=== PATIENT | male | born 1980 | race Caucasian/White ===

== ENCOUNTER 2019-05-22 18:03 | Emergency (ER) | payer MEDICAID ==
[~2019-05-22] VITALS: Ht 167.6 cm; Wt 81.6 kg
[2019-05-22 18:06] VITALS: BP_SYST 135
--- NOTE | 2019-05-22 18:08 | NUR ---
Patient to ER chair for evaluation. Side rails up. Will assume care of patient
--- NOTE | 2019-05-22 18:09 | NUR ---
Patient brought in by law enforcement for medical clearance. Law enforcement reports that patient was taken down at a store by security. Patient has an abrasion to left elbow. Denies any KO. Patient denies any pain and voices no complaints. No other injuries per patient or as noted. Will continue to monitor.
--- NOTE | 2019-05-22 18:15 | NUR ---
ER examining patient.
[2019-05-22 18:20] VITALS: BP_SYST 135
--- NOTE | 2019-05-22 18:20 | NUR ---
Patient given written and verbal discharge instructions and verbalizes understanding. ER MD Jaime discussed with patient the results and treatment provided. Patient in stable condition. ID arm band removed. no rx given. Patient educated on pain management and to follow up with PMD in 2-3 days. Pain Scale 0/10 Opportunity for questions provided and answered. Medication side effect fact sheet provided.
== END 2019-05-22 18:20 ==
LOC: SED 18:03
DX: Z02.89 Encounter for other administrative examinations (principal); Z13.89 Encounter for screening for other disorder
CPT/HCPCS: 99283